=== PATIENT | female | born 1970 | race Caucasian/White ===

== ENCOUNTER 2020-06-23 12:47 | Outpatient (CLI) | payer BC, OTHER ==
--- NOTE | 2020-06-23 13:42 | RAD ---
XR Lumbar Spine 2 Or 3 View History: Lumbar radiculopathy Comparison: None. Findings: Unilateral right L5/S1 transpedicular screws with interconnecting rods and discectomy cage. 3 mm L5-S1 retrolisthesis. No acute fracture. Paraspinal soft tissues are unremarkable. Right hip arthroplasty. Impression: Satisfactory postoperative appearance.
== END 2020-06-23 12:48 | disposition home or self-care (01) ==
LOC: TBSIIMAG 12:47
PROVIDERS: ATTEND Neurological Surgery
DX: M54.16 Radiculopathy, lumbar region (principal); Z98.890 Other specified postprocedural states
CPT/HCPCS: 72100

== ENCOUNTER 2024-07-29 07:52 | Outpatient (CLI) | payer OTHER | END 2024-07-29 07:53 | disposition home or self-care (01) | LOC: BICMAMMO 07:52 | PROVIDERS: ATTEND Internal Medicine | DX: N63.25 Unspecified lump in the left breast, overlapping quadrants (principal) | CPT/HCPCS: G0279 ==